=== PATIENT | male | born 1955 | race Caucasian/White ===

== ENCOUNTER 2021-08-20 09:30 | Emergency (ER) | payer BC ==
--- NOTE | 2021-08-20 10:32 | EDM.PDOC ---
ED HPI GENERAL MEDICAL PROBLEM - General Chief Complaint: Respiratory Problem Stated Complaint: SHORTNESS OF BREATH Time Seen by Provider: 08/20/21 10:10 - History of Present Illness INITIAL COMMENTS - FREE TEXT/NARRATIVE: Pt comes in with cough, SOB, and occasional wheezing. His cough is productive of green sputum at times. Symptoms started Last Friday. He tested negative for Covid today. He does not usually use inhalers or any breathing tx's. - Related Data Allergies Allergy/AdvReac Type Severity Reaction Status Date / Time No Known Allergies Allergy Verified 08/20/21 10:22 ED ROS GENERAL - Review of Systems Review Of Systems: Comprehensive ROS is negative, except as noted in HPI. Respiratory: Reports: Shortness of Breath, Cough, Sputum ED EXAM, GENERAL - Physical Exam Exam: See Below Respiratory/Chest: Rhonchi (scattered throughout the lung borrego.) Course - Orders/Labs/Meds Labs: Laboratory Tests 08/20/21 Range/Units 09:47 SARS CoV-2 RNA Rapid KRYSTIN Negative - Re-Assessments/Exams Free Text/Narrative Re-Assessment/Exam: 08/20/21 10:31 Pt refused any further workup involving lab or x-ray. He just wants Abx. Augmentin was given for 10 days. Activity as tolerated. Re check prn. Departure - Departure Time of Disposition: 10:25 Disposition: Home, Self-Care 01 Condition: Good Clinical Impression: Acute bronchitis, bacterial - Discharge Information *PRESCRIPTION DRUG MONITORING PROGRAM REVIEWED*: No *COPY OF PRESCRIPTION DRUG MONITORING REPORT IN PATIENT EDUARDO: No Instructions: Acute Bronchitis, Adult Forms: ED Department Discharge Additional Instructions: Take Augmentin 875 1 tab 2 times a day for 10 days. Return to clinic or ER if symptoms do not improve or worsen. Sepsis Event Note (ED) - Evaluation Sepsis Screening Result: No Definite Risk
== END 2021-08-20 10:26 | disposition home or self-care (01) ==
LOC: LB.ED 09:30
DX: J20.8 Acute bronchitis due to other specified organisms (principal); B96.89 Other specified bacterial agents as the cause of diseases classified elsewhere; Z20.822 Contact with and (suspected) exposure to COVID-19
CPT/HCPCS: 99284; U0002